=== PATIENT | male | born 1955 | race Caucasian/White ===

== ENCOUNTER → 2018-04-05 | Outpatient (CLI) | payer OTHER | LOC: FIMAGING 16:05 | PROVIDERS: ATTEND Orthopaedic Surgery | DX: M17.12 Unilateral primary osteoarthritis, left knee (principal) ==

== ENCOUNTER 2018-04-23 07:39 | Observation (INO) | payer OTHER ==
--- NOTE | 2018-04-12 12:17 | GHP ---
DATE OF ADMISSION: 04/23/2018 He will be an a.m. admission for surgery on April 23, 2018. PROBLEM: Left knee medial compartment degenerative arthritis. HISTORY OF PRESENT ILLNESS: The patient is a 62-year-old man admitted for a left knee medial compart ment Kevin hemiarthroplasty. He has had progressive pain in his left knee for the past few years. He has been treated with antiinflammatory medications. He has had several cortisone injections which g ave him temporary relief. His pain is aggravated by activities. His activities are now very restric jeannie. The pain has diminished his quality of life. He is admitted for a left knee medial compartment Kevin hemiarthroplasty. PAST MEDICAL HISTORY: He is treated for elevated cholesterol and hypertension. He had a Deuce bicom partment arthroplasty of his right knee in 2008. PAST MEDICAL HISTORY: No history of heart disease, stents, DVT, hepatitis, MRSA staph infections, sl eep apnea or bleeding problems. CURRENT MEDICATIONS: Amlodipine 5 mg per day. Losartan/hydrochlorothiazide 100/25 one tablet p.o. d aily. Simvastatin 20 mg per day. Ambien 10 mg p.r.n. sleep. He also is taking 1 baby aspirin per d ay. DRUG ALLERGIES: He had a reaction to Phenergan in the past. METAL ALLERGY: None. LATEX ALLERGY: None. 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 He does not smoke cigarettes and occasionally drinks alcohol. He is single. FAMILY HISTORY: Positive for diabetes and cancer. PHYSICAL EXAMINATION: VITAL SIGNS: Height 5 feet 8 inches. Weight 173 pounds. BMI 26.3. EYES: T he conjunctivae and sclerae are clear. Pupils are round and reactive. MOUTH: Good oral hygiene. N o loose teeth. CHEST: Clear. HEART: Regular rhythm. No murmurs. EXTREMITIES: Pertinent finding s are limited to his left knee. He has a small effusion. Full extension 125 degrees of flexion. He is tender along the medial joint line. He has slight medial pseudolaxity. His patella is not tende r. IMPRESSION ON ADMISSION: 1. Left knee medial compartment degenerative arthritis. He is prepared for a medial compartment Us[place] o hemiarthroplasty. 2. Nine years status post bicompartment arthroplasty of the right knee. 3. Treatment for hypertension. 4. Treatment for elevated cholesterol. PLAN: He will undergo a left knee medial Kevin hemiarthroplasty. The surgery has been described to kalpesh navarro including the risks, complications, expectations, and recovery time. The risk of infection and re vision surgery have been reviewed with him. All his questions have been answered. He is going to try to go home on the same day of surgery. /[id number]/MODL
[~2018-04-23 07:39] MED LIST: POVIDONE-IODINE 20 ML in SODIUM CL IRRIG SOLUTION 500 ML IRR ONE; ROPIVACAINE 0.2% 80 MG, EPINEPHrine 0.2 MG, KETOROLAC TROMETHAMINE 30 MG in SYRINGE 0 ML IU ONE; TRANEXAMIC ACID 1,000 MG in NS 100 ML IV ONE; TRANEXAMIC ACID 3,000 MG in NS (SYRINGE) 50 ML IRR ONE; TRANEXAMIC ACID 3,000 MG/50 ML BAG IRR ONE; VANCOMYCIN 1 GM VIAL ONE; ceFAZolin 1 GM/5 ML SYR ONE
[2018-04-23] MEDS ORDERED: LIDOCAINE 1% 2 ML INJ ID PRN (07:46)
[2018-04-23] MEDS ORDERED: FAMOTIDINE 20 MG TAB PO ONE (07:46)
[2018-04-23] MEDS ORDERED: ONDANSETRON 4 MG/2 ML VIAL IVP ONE (07:46)
[2018-04-23] MEDS ORDERED: DEXAMETHASONE 4 MG/ML VIAL IVP ONE (07:46)
[2018-04-23] MEDS ORDERED: ceFAZolin 2 GM/DEXTROSE 100 ML IV ONE (07:46)
[2018-04-23] MEDS ORDERED: GABAPENTIN 300 MG CAP PO ONE (07:46)
[2018-04-23] MEDS ORDERED: LR 1,000 ML IV ONE (07:46)
[2018-04-23] MEDS ORDERED: ACETAMINOPHEN 325 MG TAB PO ONE (07:46)
[2018-04-23] MEDS ORDERED: LIDOCAINE 2% 100 MG/5 ML SYR ONE (07:49)
[2018-04-23] MEDS ORDERED: ROPIVACAINE HCL 150 MG/30 ML INJ ONE (07:49)
[2018-04-23] MEDS ORDERED: BUPIVACAINE/DEXTROSE 7.5MG/ML 2 ML SPINAL AMP SP ONE (07:49)
[2018-04-23] MEDS ORDERED: PROPOFOL/EMULSION 500 MG/50 ML BOTTLE IV ONE ×2 (07:49→11:27)
[2018-04-23] MEDS ORDERED: fentaNYL 100 MCG/2 ML INJ ONE (07:49)
[2018-04-23] MEDS ORDERED: PHENYLEPHRINE HCL 100 MCG/ML SYR ONE (07:55)
[2018-04-23] MEDS ORDERED: ONDANSETRON 4 MG/2 ML VIAL ONE (07:55)
--- NOTE | 2018-04-23 09:30 | PDHPUP ---
History & Physical Update H&P update statement: This history and physical update is based on an assessment of the patient which was completed after admission or registration (within 24 hours), but prior to the surgery/procedure. H&P update: H&P reviewed & patient examined
[2018-04-23] MEDS ORDERED: MIDAZOLAM 2 MG/2 ML VIAL ONE (09:58)
[2018-04-23] MEDS ORDERED: MIDAZOLAM 2 MG/2 ML VIAL IVP ONE (10:32)
--- NOTE | 2018-04-23 10:32 | PDANEPAE ---
ANE History of Present Illness L knee pain, here for L knee resurfacing ANE Past Medical History - Cardiovascular History Hx Hypertension: Yes Hx Arrhythmias: No Hx Chest Pain: No Hx Coronary Artery / Peripheral Vascular Disease: No Hx CHF / Valvular Disease: No Hx Palpitations: No Cardiovascular History Comment: high chol. pcp monitors bp medications - Pulmonary History Hx COPD: No Hx Asthma/Reactive Airway Disease: No Hx Recent Upper Respiratory Infection: No Hx Oxygen in Use at Home: No Hx Sleep Apnea: No Sleep Apnea Screening Result - Last Documented: Positive Pulmonary History Comment: ashli triggers - Neurologic History Hx Cerebrovascular Accident: No Hx Seizures: No Hx Dementia: No - Endocrine History Hx Diabetes: No - Renal History Hx Renal Disorders: No - Liver History Hx Hepatic Disorders: No - Neurological & Psychiatric Hx Hx Neurological and Psychiatric Disorders: No - Cancer History Hx Cancer: No - Congenital Disorder History Hx Congenital Disorders: No - GI History Hx Gastrointestinal Disorders: Yes Gastrointestinal History Comment: occ reflux - Other Health History Other Health History: none - Chronic Pain History Chronic Pain: Yes (left knee) - Surgical History Prior Surgeries: right knee partial replacement. multiple right knee scopes. 08/18/11 bilateral ing hernia repair with Peguero. 05/05/11 excision of anal mass with Peguero ANE Review of Systems Review of Systems: - Exercise capacity METS (RN): 4 METS ANE Patient History - Allergies Allergies/Adverse Reactions: No Known Allergies Allergy (Verified 04/12/18 10:54) - Home Medications Home Medications: Aspirin [Aspirin 81mg (*)] 81 mg PO DAILY 04/05/18 [Last Taken 04/09/18] Herbals/Supplements -Info Only 1 ea PO DAILY 04/05/18 [Last Taken 04/09/18] Hydrocodone/Acetaminophen [Vicodin 5-300 mg Tablet] 1 each PO DAILY PRN [Last Taken 04/21/18] Losartan/Hydrochlorothiazide [Losartan-Hctz 100-25 mg Tab] 1 each PO DAILY 04/05 [Last Taken 04/22/18] Multivitamins [Multivitamin (*)] 1 each PO DAILY 04/05/18 [Last Taken 04/09/18] Sildenafil Citrate [Revatio 20 MG (*)] 10 mg PO DAILY PRN 04/05/18 [Last Taken 04/16/18] Simvastatin [Zocor] 20 mg PO DAILY 04/05/18 [Last Taken 04/22/18] amLODIPine BESYLATE [Norvasc 5 mg (*)] 5 mg PO DAILY 04/05/18 [Last Taken ] - NPO status NPO Since - Liquids (Date): 04/22/18 NPO Since - Liquids (Time): 21:00 NPO Since - Solids (Date): 07/23/12 - Smoking Hx Smoking Status: Never smoked - Family Anes Hx Family Hx Anesthesia Complications: none ANE Labs/Vital Signs - Vital Signs Blood Pressure: 135/85 Heart Rate: 61 Respiratory Rate: 24 O2 Sat (%): 96 Height: 172.72 cm Weight: 78.471 kg ANE Physical Exam - Airway Neck exam: FROM Mallampati Score: Class 1 Mouth exam: normal dental/mouth exam - Pulmonary Pulmonary: no respiratory distress, no rales or rhonchi - Cardiovascular Cardiovascular: regular rate and rhythym, no murmur, rub, or gallop - ASA Status ASA Status: II ANE Anesthesia Plan Anesthesia Plan: GA with mask, spinal Regional Anesthesia: single shot NB, continuous NB Total IV Anesthesia: Yes
--- NOTE | 2018-04-23 12:27 | POSTOPPROG ---
Post Op Note Date of Operation: 04/23/18 Surgeon: Miguelito Agarwal Lube Attendant: Noe Anesthesiologist: Paula Anesthesia: IV Sedation, Spinal Post-op Diagnosis: Left knee medial compartment degenerative arthritis Procedure: Left knee medial compartment Kevin robot assisted hemiarthroplasty. Inf/Abcess present in the surg proc area at time of surgery?: No EBL: 50-100 (Adductor canal block in PACU.)
[2018-04-23] MEDS ORDERED: PROMETHAZINE HCL 25 MG/ML INJ IVP PRN (12:45)
[2018-04-23] MEDS ORDERED: LACTULOSE 20 GM/30 ML UDCUP PO PRN (12:45)
[2018-04-23] MEDS ORDERED: BISACODYL 10 MG SUPP PR PRN (12:45)
[2018-04-23] MEDS ORDERED: TEMAZEPAM 15 MG CAP PO PRN (12:45)
[2018-04-23] MEDS ORDERED: NS 500 ML IV PRN (12:45)
[2018-04-23] MEDS ORDERED: diphenhydrAMINE 25 MG CAP PO PRN (12:45)
[2018-04-23] MEDS ORDERED: MAGNESIUM HYDROXIDE 30 ML UDCUP PO PRN (12:45)
[2018-04-23] MEDS ORDERED: CYCLOBENZAPRINE 10 MG TAB PO PRN (12:45)
[2018-04-23] MEDS ORDERED: POLYETHYLENE GLYCOL 3350 17 GM PKT PO PRN (12:45)
[2018-04-23] MEDS ORDERED: DIPHENOXYLATE/ATROPINE LOMOTIL 1 TAB PO PRN (12:45)
[2018-04-23] MEDS ORDERED: ONDANSETRON DISINTEGRATING 4 MG TAB PO PRN (12:45)
[2018-04-23] MEDS ORDERED: oxyCODONE IR 5 MG TAB PO PRN (12:45)
[2018-04-23] MEDS ORDERED: ONDANSETRON 4 MG/2 ML VIAL IVP PRN (12:45)
[2018-04-23] MEDS ORDERED: PROMETHAZINE HCL 25 MG SUPPR PR PRN (12:45)
[2018-04-23] MEDS ORDERED: METOCLOPRAMIDE 10 MG/2 ML VIAL IVP PRN (12:45)
[2018-04-23] MEDS ORDERED: MEPERIDINE 25 MG/0.5 ML AMP IVP PRN (12:50)
[2018-04-23] MEDS ORDERED: HYDROmorphONE/DILAUDID 2 MG/ML INJ IVP PRN (12:50)
[2018-04-23] MEDS ORDERED: DIAZEPAM 5 MG/ML 1 ML SYR IVP PRN (12:50)
[2018-04-23] MEDS ORDERED: LR 500 ML IV PRN (12:50)
[2018-04-23] MEDS ORDERED: NALOXONE HCL 0.4 MG/ML INJ IVP PRN (12:50)
[2018-04-23] MEDS ORDERED: fentaNYL 100 MCG/2 ML INJ IVP PRN (12:50)
--- NOTE | 2018-04-23 12:51 | POSTANESTH ---
Post Anesthetic Evaluation Cardiovascular Status: Normal, Stable Respiratory Status: Normal, Stable Level of Consciousness/Mental Status: Can Participate in Eval, Moderately Sleepy Pain Control: Adequate, Prn Tx Ordered Nausea/Vomiting Control: Adequate, Prn Tx Ordered (ADC block w/o comp)
[2018-04-23] MEDS ORDERED: LR 1,000 ML IV SCH (13:00)
--- NOTE | 2018-04-23 13:23 | GOP ---
DATE OF OPERATION: 04/23/2018 SURGEON: Miguelito Agarwal MD BLACK PULLER: Jose Cruz Ying CFA. Olegario Prajapati, PAC. ANESTHESIA: A combination of Marcaine, spinal, IV sedation, and adductor canal block. PREOPERATIVE DIAGNOSIS: Left knee medial compartment degenerative arthritis. POSTOPERATIVE DIAGNOSIS: Left knee medial compartment degenerative arthritis. PROCEDURE PERFORMED: Left knee medial compartment Kevin robot-assisted hemiarthroplasty. FINDINGS: DESCRIPTION OF PROCEDURE: The patient was given 2 g of preoperative IV Ancef within 60 minutes of francois rgery. He also received 1000 mg of IV tranexamic acid. He was placed on the operating room table an d given spinal anesthesia with Marcaine by Dr. Mitchell. He was then placed supine and given IV sedatio n. A Jj catheter was not used. He wore a KANDICE stocking and SCD on the nonoperative leg. His left lower extremity was prepped with ChloraPrep from the upper thigh tourniquet to the tips of the toes. It was draped free using sterile sheets, towels, and Ioban plastic drape. A ALENTY Organizat ion time-out was performed to verify the correct surgical side and site and the correct patient ident ity. The Irena time-out was also performed. The Oz Sonoteko leg holding device was sterilely attached to the operating room table and used throughout the procedure to help position the knee. Two bicortical 3 mm partially threaded pins were inserted into the anteromedial cortex of his femur a pproximately 4-5 inches proximal to the superior pole of his patella. They were inserted with the kn ee flexed 90 degrees. Two bicortical 3 mm partially threaded pins were inserted in the anteromedial cortex of the tibia about 4-5 inches distal to the tibial tubercle. The computer arrays were russian teacher d to both sets of pins. I confirmed that the arrays were visualized by the computer. The leg was ex sanguinated with elevation and a 6-inch compressive wrap, and the pneumatic tourniquet was inflated t o 250 mmHg. I made a 5-6 inch slightly curved medial parapatellar incision. Subcutaneous tissues were sharply di vided, and hemostasis was obtained using electrocautery. The capsule and synovium were opened in a m edial parapatellar fashion. He had very significant degenerative changes in the medial compartment a nd in the medial side of the trochlear groove. The articular surface of his patella was in good cond ition. The lateral femoral condyle was in good condition and what I could see of his lateral tibial plateau was also in good condition. His medial capsule and periosteum were lightly elevated off the rim of the medial tibial plateau all the way around to the posteromedial corner. The anterior portio n of his medial meniscus was excised. I excised a small portion of the fat pad in order to improve e xposure. The femoral and tibial check pins were inserted, checked and confirmed. I performed a hip registrati on followed by registration of the medial and lateral malleoli. The bony anatomy of the medial rosario rtment of the femur and the tibia was registered. Joint balancing was checked and captured in multiple degrees of flexion from 10 degrees to 100 degree s. I used a curved osteotome to tension the medial collateral ligament in each post. Implant positi oning was performed. I made a few adjustments to the position of the femoral component in order to a chieve 1 to 1.5 mm of balance of his medial collateral ligament throughout the range of motion. I co nfirmed that his femoral component was a size 4. The tibia was sized for a size 4. The robotic arm was registered. I burred the femur first. This was followed by burring of the tibia l plateau with the robotic arm control. Some loose articular cartilage was trimmed with a rongeur. The anchor holes in the femur and the tibia were completed. I excised the posterior horn of his medi al meniscus. I did a trial reduction. The size 4 femur and tibia fit properly. I did a trial reduction with 8 mm and 9 mm polyethylene tibial inserts. The 9 mm gave me the proper soft tissue tension. He had abou t 2 degrees of hyperextension and 135 degrees of flexion. His medial collateral ligament felt proper ly tensioned throughout the range of motion. The surfaces were prepared for cementing. They were carefully cleaned with the pulsating lavage. Th e CarboJet device was used to blow dry the cancellous surfaces. A single batch of high viscosity met hylmethacrylate cement with 1 g of added vancomycin was mixed. While it was still in a doughy state, I packed the peg holes in the tibial surface and layered a thin layer of cement on the surface and a lso on the undersurface of the tibial component. The tray was tapped securely into place. Excess ce ment was removed before it hardened. I made sure I removed all the cement around the posterior corne r of the tibial tray. I packed a small amount of cement in the peg holes for the femur and then adde d additional cement on the back of the component. The femur was inserted and tapped securely into pl cailin. Excess cement was removed before it hardened. I had a smooth transition with the intact articu lar cartilage on the medial surface of the femoral component anteriorly. The size 4 x 9 mm tibial in sert was inserted. My first effort, I did not properly lock the posterior lip of the locking mechani sm. This had to be removed and it was damaged in the process of removing it. I opened the second si ze 4 by 9 mm polyethylene insert. This time I was careful to engage the posterior locking lip first and then tap it back and tap the whole component in place. The tourniquet was deflated. Total tourniquet time was 1 hour and 24 minutes. The tibial and femora l check points were removed. The wound was thoroughly irrigated with Betadine. 50 cc of tranexamic acid solution was irrigated into the joint. The 2 pins in the femur and the 2 pins in the tibia were removed. 40 mL of the joint anesthetic cocktail were injected into the vastus medialis tendon and m uscle areas and the subcutaneous tissues along the skin edges. The vastus medialis portion of the ex tensor mechanism was repaired with several interrupted [id number] #2 FiberWire sutures. The cap jono and synovium were closed with multiple [id number] 0 PDS sutures, followed by a running #2 b arbed Ethicon Stratafix PDO suture. Subcutaneous tissues were closed with a running 0 barbed Ethicon Stratafix Monoderm suture. The skin was closed with a running 0 barbed Ethicon Stratafix Monoderm s ubcuticular suture. The skin edges were reapproximated and sealed with half-inch Steri-Strips. The femoral puncture wounds were closed with a single 3-0 Monocryl subcuticular suture followed by Steri- Strips. The tibial puncture wounds were closed with Steri-Strips. The wound was covered with a larg e piece of sterile Mepilex waterproof dressing followed by a 6-inch compressive wrap. A long-leg KANDICE stocking was applied followed by the cooling device. The patient wore a stocking and SCD on the opp osite leg during the procedure. The sacral Mepilex dressing was applied. The sponge and needle count were correct on 2 occasions. I used a Kevin Restoris MCK femoral component in size 4. The tibial component was a Kevin Restoris MCK in size 4. The tibial insert was a size 4 and 9 mm in thickness. Jose Cruz Ying and Brad Prajapati acted as surgical assistants. Their assistance was a medical necess ity for safe completion of the procedure. Copy requested to: Jose Cruz Ying [facility] DENIZ [facility] /[id number]/MODL
--- NOTE | 2018-04-23 15:28 | SOAPPROG ---
SOAP Progress Note Assessment/Plan: Assessment: Pt improved rapidly following surgery and did better than expected. He was seen by PT/OT and cleared to go home same day as surgery. Plan: Follow up in the office as planned on 05.03.18. 04/23/18 15:26 Objective: Vital Signs Temp Pulse Resp BP Pulse Ox 36.4 C 52 L 16 124/78 H 96 04/23/18 15:13 04/23/18 15:13 04/23/18 15:13 04/23/18 15:13 04/23/18 15:13 04/22/18 04/23/18 04/24/18 05:59 05:59 05:59 Intake Total 995 Output Total 100 Balance 895 ICD10 Worksheet Patient Problems: Problems Problem Status Onset Osteoarthritis of left knee Acute
[2018-04-23 17:08] VITALS: BP 121/82
[2018-04-23] MEDS ORDERED: KETOROLAC 15 MG/1 ML SDV IVP SCH (18:00)
[2018-04-23] MEDS ORDERED: ceFAZolin 2 GM/DEXTROSE 100 ML IV SCH (18:00)
[2018-04-23] MEDS ORDERED: ACETAMINOPHEN 325 MG TAB PO SCH (18:00)
[2018-04-23] MEDS ORDERED: FAMOTIDINE 20 MG TAB PO SCH (21:00)
[2018-04-23] MEDS ORDERED: ASPIRIN 325 MG TAB PO SCH (21:00)
[2018-04-23] MEDS ORDERED: SENNOSIDES/DOCUSATE SODIUM TAB PO SCH (21:00)
[2018-04-24] MEDS ORDERED: FERROUS SULFATE 325 MG TAB PO SCH (08:00)
[2018-04-24] MEDS ORDERED: amLODIPine BESYLATE 5 MG TAB PO SCH (09:00)
[2018-04-24] MEDS ORDERED: LOSARTAN/HCTZ 50/12.5 1 TAB PO SCH (09:00)
--- NOTE | 2018-04-24 12:01 | GDS ---
PREOPERATIVE DIAGNOSIS: Left knee medial compartment degenerative arthritis. DISCHARGE DIAGNOSIS: Left knee medial compartment degenerative arthritis. TEST PERFORMED: April 23, 2018, left knee Kevin robot assisted medial compartment hemiarthroplasty. POSTOP COMPLICATIONS: Complications. CONDITION ON DISCHARGE: Improved. DESCRIPTION OF HOSPITAL COURSE: The patient was admitted to the hospital the morning of surgery. Hi s admission CBC was normal. The same day, under a combination of Marcaine, spinal, IV sedation, and adductor canal block he underwent a left knee medial compartment Kevin robot assisted hemiarthroplasty . Postoperatively, he was seen by Physical Therapy for ambulation and stairs. He was discharged the same day. DISPOSITION: The patient is discharged to his home. He will go to outpatient physical therapy. He may progress to full weightbearing on the left as tolerated. Continue KANDICE stockings for 1 week. Ankur ruiz aspirin 325 mg daily for 21 days. I will see him back in the office in 10-14 days. He has pre scriptions for Celebrex, oxycodone, and tramadol for pain control. If there any problems, he is to c all me at the office. /[id number]/MODL
== END 2018-04-23 18:00 | disposition home or self-care (01) ==
LOC: F3N 07:39 → INTOOBSV 07:39 → F3N 13:55
PROVIDERS: ADMIT Orthopaedic Surgery; ATTEND Orthopaedic Surgery
PROC: 0SRD0JZ Replacement of Left Knee Joint with Synthetic Substitute, Open Approach (ICD-10-PCS; principal; 2018-04-23 09:00)
DX: M17.12 Unilateral primary osteoarthritis, left knee (principal)
CPT/HCPCS: 27446; 73560; 97116; 97161; G0378; C1713; J0171; J0690; J1100; J1885; J2001; J2250; J2370; J2405; J2704; J2795; J3010; J3370